=== PATIENT | female | born 1965 | race Caucasian/White ===

== ENCOUNTER → 2021-12-16 03:21 | Outpatient (CLI) | payer BC, SELFPAY ==
[2021-12-16 21:56] LABS: SARS-CoV-2 RNA PCR Negative
== END ==
PROVIDERS: PCP Family Medicine Adolescent Medicine; Visit Provider Internal Medicine Gastroenterology
DX: Z01.812 Encounter for preprocedural laboratory examination (principal); Z20.822 Contact with and (suspected) exposure to COVID-19
CPT/HCPCS: C9803; U0003; U0005

== ENCOUNTER 2021-12-19 00:31 | Day surgery (SDC) | payer BC, SELFPAY ==
[2021-12-07 15:53] VITALS: BMI 23.6
[2021-12-19 10:48] VITALS: BP 145/84; PULSE 96; RESP 18; TEMP 36.6; O2SAT 99
[2021-12-19] MEDS: LACTATED RINGERS 1,000 ML 150 ML IV CONT (10:50)
--- NOTE | 2021-12-19 11:04 | WPDANESEPPF ---
Anes - Initial Pre Proc Eval Procedure: Operation Date: 12/19/21 11:30 Proposed Procedures p Colonoscopy - Felix Mg MD Date/Time: 12/19/21 11:04 Surgeon: Felix Mg MD Pre Op Diagnosis: positive cologuard Patient Data Age: 56 Gender: F Height: 1.7 m Weight: 65.4 kg Last Vital Signs Temp 36.6 C 12/19/21 10:48 Pulse 96 12/19/21 10:48 Resp 18 12/19/21 10:48 BP 145/84 H 12/19/21 10:48 Pulse Ox 99 12/19/21 10:48 Allergies Allergy/AdvReac Type Severity Reaction Status Date / Time No Known Allergies Allergy Verified 12/19/21 10:47 Home Medications Medication Instructions Recorded Confirmed Type trazodone 100 mg tablet 100 mg PO DAILY #30 tablet 12/09/21 12/19/21 Rx Patient hx anesthesia problems: none Family hx anesthesia problems: none Results Review: All pre-operative results and documents have been reviewed as part of the pre-operative evaluation. [facility] Social History Social History Smoking packs per day: 1 Smoking cigarettes per day: 20.0 Years smoked: 40 Smoking pack-years: 40.00 Smoking status: Current every day smoker Tobacco type: cigarettes Alcohol intake: current Drinks per week: 14 Alcohol use details: 2 drinks nightly beer or vodka Substance use: never Substance use type: does not use Living arrangements: with family Spiritual care concerns: No Anes - Eval Final PreProcedure Day of Procedure 12/19/21 11:04 Patient weight: normal Heart: regular rate and rhythm Lungs: clear to auscultation and normal air movement Airway: Mallampati scale class II Neurological: alert and oriented Last oral intake: >/= 8 hours ASA classification: II Emergent: no Anesthetic plan: proceed Anesthesia type and monitoring: general GIVS Results Review: All pre-operative results and documents have been reviewed as part of the pre-operative evaluation. Informed Consent: The patient's anesthetic plan and its attendant risks and benefits were discussed with the patient/family/POA. Questions were solicited and answers provided to the satisfaction of the patient/family/POA.
--- NOTE | 2021-12-19 11:05 | WPDGICN ---
Assessment and Plan Assessment and plan (1) Positive colorectal cancer screening using Cologuard test: Code(s): R19.5 - Other fecal abnormalities Status: Acute Assessment and Plan: Patient presents for screening colonoscopy. She had a positive screening Cologuard test. Further recommendations will be given after endoscopy. GI Consult Note Consult date/time: 12/19/21 11:05 HPI: Anahi Gracia is a 56 year old female Presents for screening colonoscopy. Patient recently was found to have a positive Cologuard test. She reports that her current weight appetite bowel movements are normal. She denies abdominal pain. She has had no bleeding. Family history is noncontributory. Review of Systems Review of Systems: All systems reviewed & are unremarkable except as noted in HPI and below PMFSH Social History Social History Smoking packs per day: 1 Smoking cigarettes per day: 20.0 Years smoked: 40 Smoking pack-years: 40.00 Smoking status: Current every day smoker Tobacco type: cigarettes Alcohol intake: current Drinks per week: 14 Alcohol use details: 2 drinks nightly beer or vodka Substance use: never Substance use type: does not use Living arrangements: with family Spiritual care concerns: No Meds Home Medications and Allergies Home Medications Medication Instructions Recorded Confirmed Type trazodone 100 mg tablet 100 mg PO DAILY #30 tablet 12/09/21 12/19/21 Rx Allergies Allergy/AdvReac Type Severity Reaction Status Date / Time No Known Allergies Allergy Verified 12/19/21 10:47 Vital Signs Vital Signs - 24 hr 12/19/21 10:48 Temperature 97.9 F Pulse Rate 96 Respiratory Rate 18 Blood Pressure 145/84 H Pulse Oximetry 99 Exam Narrative: Physical exam reveals patient to be alert. Vital signs stable. HEENT exam is unremarkable. Patient is anicteric. Lungs are clear to auscultation and percussion. Heart is without murmur or extra sounds. Abdominal exam bowel sounds present soft nontender with no organomegaly. Digital external rectal exam is normal.
[2021-12-19 11:59] VITALS: BP 98/65; PULSE 75; RESP 20; O2SAT 97
[2021-12-19 12:09] VITALS: BP 118/62; PULSE 74; RESP 18; O2SAT 99
[2021-12-19 12:19] VITALS: BP 125/82; PULSE 76; RESP 20; O2SAT 99
== END 2021-12-19 12:30 | disposition home or self-care (01) ==
PROVIDERS: PCP Family Medicine Adolescent Medicine; Visit Provider Internal Medicine Gastroenterology
PROC: 0DJD8ZZ Inspection of Lower Intestinal Tract, Via Natural or Artificial Opening Endoscopic (ICD-10-PCS; CPT 45378; principal; 2021-12-19 11:30)
DX: R19.5 Other fecal abnormalities (principal); K64.8 Other hemorrhoids; K63.5 Polyp of colon; K62.1 Rectal polyp; Z87.891 Personal history of nicotine dependence
CPT/HCPCS: 45385; 88305; C9803; J2704; J7120; U0003; U0005

== ENCOUNTER 2024-04-25 11:22 | Outpatient (CLI) | payer BC, SELFPAY ==
--- NOTE | ~2024-04-25 | XR_ITS ---
EXAMINATION: [id number] Exam Date/Time: 04/25/2024 11:25 CDT HISTORY: Fall with right chest wall pain Comparison: None available. RESULT: Lines, tubes, and devices: None. Lungs and pleura: Minimal linear scar/atelectasis in the left lower lung, otherwise clear. Cardiothymic silhouette: Stable. Other: No acute osseous or upper abdominal finding. IMPRESSION: No acute cardiopulmonary process. No acute osseous finding in the right ribs. Reviewed, dictated and finalized at location K.
== END 2024-04-25 11:23 ==
PROVIDERS: PCP Family Medicine Adolescent Medicine; Visit Provider Family Medicine Adolescent Medicine
DX: R07.9 Chest pain, unspecified (principal); W19.XXXA Unspecified fall, initial encounter
CPT/HCPCS: 71101